=== PATIENT | male | born 1990 | race Two or more races ===

== ENCOUNTER 2024-03-09 11:13 | Emergency (ER) | payer OTHER ==
[~2024-03-09] VITALS: Ht 177.8 cm; Wt 90.2 kg
[2024-03-09 11:47] VITALS: TEMP 98.1
[2024-03-09 12:12] LABS: Urine Bacteria None Seen /hpf (None Seen)
[2024-03-09 12:21] LABS: Urine Blood Negative /uL (Negative); Urine Clarity Clear (Clear); Urine Color Yellow (Yellow); Urine Mucus FEW (None Seen); Urine Protein, UAD TRACE (Negative); Urine Specific Gravity 1.036 (1.001-1.035); Urine Urobilinogen Normal (Negative); Urine WBC 3 /hpf (0 - 3)
[2024-03-09] MEDS ORDERED: CEPH500C PO (13:00)
[2024-03-09 13:07] VITALS: PULSE 92; RESP 18; O2SAT 98
[2024-03-09 13:16] VITALS: BP 109/77; PULSE 74; RESP 18; O2SAT 96
== END 2024-03-09 13:21 | disposition home or self-care (01) ==
LOC: ER 11:13
DX: N48.1 Balanitis (principal); N39.0 Urinary tract infection, site not specified
CPT/HCPCS: 81001